=== PATIENT | female | born 1990 | race Caucasian/White ===

== ENCOUNTER 2016-06-25 | Emergency (ER) | payer OTHER ==
[~2016-06-25] MED LIST: AZITHROMYCIN500 MG PO; IBUPROFEN800 MG PO; NO HOME MEDS; ZITHROMAX250MG Z-PAK PO
[2016-06-25] MEDS ORDERED: HYDROCODON-ACE1 EA16 PO (23:51)
[2016-06-25] MEDS ORDERED: VIBRAMYCIN100 M1 PO (23:52)
== END 2016-06-26 02:30 ==
DX: G89.18 Other acute postprocedural pain (principal); R10.11 Right upper quadrant pain; R11.0 Nausea; Z90.710 Acquired absence of both cervix and uterus; Z90.89 Acquired absence of other organs